=== PATIENT | male | born 1965 | race Caucasian/White ===

== ENCOUNTER 2017-09-17 13:11 | Emergency (ER) | payer MEDICAID ==
[2017-09-17 13:25] VITALS: BP 150/88; PULSE 70; RESP 18; TEMP 97.5; O2SAT 98
--- NOTE | 2017-09-17 13:51 | C.PDOC ---
History Of Present Illness 52 y/o male comes in for evaluation of left knee pain, onset s/p mechanical fall today. Patient states he tripped on street and fell onto his left knee. Pain is localized over the knee, and worsens with ambulation. Denies head injury , LOC, headache, dizziness, neck pain, denies obvious deformity of knee, weakness, or sensorivascular deficits to Left leg. Ambulate to Ed for evaluation , not in any apparent distress. Time Seen by Provider: 09/17/17 13:26 Chief Complaint (Nursing): Lower Extremity Problem/Injury History Per: Patient History/Exam Limitations: no limitations Onset/Duration Of Symptoms: Hrs Current Symptoms Are (Timing): Still Present Past Medical History Reviewed: Historical Data, Nursing Documentation, Vital Signs Vital Signs: Last Vital Signs Temp 97.5 F L 09/17/17 13:21 Pulse 70 09/17/17 13:21 Resp 18 09/17/17 13:21 BP 150/88 09/17/17 13:21 Pulse Ox 98 09/17/17 14:07 - Medical History PMH: No Chronic Diseases Surgical History: No Surg Hx Family History: States: Unknown Family Hx - Social History Hx Tobacco Use: No Hx Alcohol Use: No Hx Substance Use: No - Immunization History Hx Tetanus Toxoid Vaccination: No Hx Influenza Vaccination: No Hx Pneumococcal Vaccination: No Review Of Systems Musculoskeletal: Positive for: Leg Pain (left knee pain) Neurological: Negative for: Weakness, Numbness, Headache Physical Exam - Physical Exam Appears: Well, Non-toxic, No Acute Distress Skin: Normal Color, Warm, No Rash, No Ecchymosis Head: Atraumatic, Normacephalic Eye(s): bilateral: PERRL Neck: Trachea Midline, No Midline Cervical Tenderness, No Paracervical Tenderness, No Step Off Deformity, Supple Chest: Symmetrical Extremity: Normal ROM (Left knee), Tenderness (medial aspect left knee), Capillary Refill (less than2 sec to left foot), No Deformity, No Swelling DTR: Knee (L): 2+ Neurological/Psych: Oriented x3, Normal Speech, Normal Motor, Normal Sensation ED Course And Treatment O2 Sat by Pulse Oximetry: 98 Pulse Ox Interpretation: Normal - Other Rad XR L knee X-Ray: Interpreted by Me, Viewed By Me Interpretation: (-) fx, (-) dislocation Progress Note: X-ray of left knee ordered to rule out fracture. Patient treated with PO ibuprofen. On re-evaluation, pt is afebrile, hemodynamicaly stable. Non-toxic. Ambulatory in Ed with stable gait. Head: AT/NC. neck: Supple, (-) midline tenderness. left knee: exam c/w mild medial tenderness over Left knee, no defomrity. FAROM, no neurovascular deficits, no skin changes. Neurologically intact. Imaging review (-) acute fx or dislocation. Pt advised. ref. to f/u with PMD, Ortho in 2-3 days for re-evaluation. return to ED if any worsening or new changes. Disposition Counseled Patient/Family Regarding: Studies Performed, Diagnosis, Need For Followup, Rx Given - Disposition Referrals: [facility] [Outside] Disposition: HOME/ ROUTINE Disposition Time: 13:48 Condition: STABLE Additional Instructions: RICE-REST,ICE,COMPRESSION,ELEVATION TAKE MEDICATION PRESCRIBED LIGHT DUTY TO KNEE AREA, AVOID PROLONG WALKING FOLLOW UP WITH ORTHOPEDIST IN2 -3 DAYS FOR RE-EVALUATION. RETURN TO ED IF ANY NEW CHANGES. 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 - Scribe Statement The provider has reviewed the documentation as recorded by the Scribe (Dorothea Crain) All medical record entries made by the Scribe were at my direction and personally dictated by me. I have reviewed the chart and agree that the record accurately reflects my personal performance of the history, physical exam, medical decision making, and the department course for this patient. I have also personally directed, reviewed, and agree with the discharge instructions and disposition.
--- NOTE | 2017-09-17 14:12 | RAD ---
PROCEDURE: Left Knee Radiographs. HISTORY: Pain. COMPARISON: None. FINDINGS: BONES: . No fracture. Incidental benign appear bone island- tibial metaphysis JOINTS: Arthrosis JOINT EFFUSION: None. OTHER FINDINGS: None. IMPRESSION: Arthrosis
== END 2017-09-17 14:15 | disposition home or self-care (01) ==
LOC: C.ER 13:11
DX: S80.02XA Contusion of left knee, initial encounter (principal); W01.0XXA Fall on same level from slipping, tripping and stumbling without subsequent striking against object, initial encounter; Y92.410 Unspecified street and highway as the place of occurrence of the external cause